=== PATIENT | female | born 1995 | race Caucasian/White ===

== ENCOUNTER 2019-07-28 10:25 | Emergency (ER) | payer OTHER ==
[2019-07-28 10:31] VITALS: BP 120/66; PULSE 79; TEMP 97.6; BMI 37.5
--- NOTE | 2019-07-28 10:47 | PDOC ---
History of Present Illness - General Chief Complaint: ,Possible Stated Complaint: TEST Time Seen by Provider: 07/28/19 10:35 - History of Present Illness Initial Comments: 07/28/19 11:04 CHIEF COMPLAINT: HISTORY OF PRESENT ILLNESS: 23 yo F with no PMH presents to [facility] test. LMP 05/29/19. Patient states she took two tests at home which were both positive and "wanted to make sure." She denies any vaginal discharge, bleeding, abdominal or pelvic pain, urinary symptoms, nausea , or vomiting. Patient does reports "some heartburn since yesterday, which I' ve never had before." No recent travel or sick contacts. PAST MEDICAL HISTORY: Denies past medical history FAMILY HISTORY: Denies SOCIAL HISTORY: Denies tobacco, alcohol, illicit drug use. SURGICAL HISTORY: Denies ALLERGIES: No known drug allergies REVIEW OF SYSTEMS General/Constitutional: Denies fever or chills. Denies weakness, weight change. HEENT: Denies change in vision. Denies ear pain or discharge. Denies sore throat. Cardiovascular: Denies chest pain or shortness of breath. Respiratory: Denies cough, wheezing, or hemoptysis. Gastrointestinal: "I feel a little heartburn." Denies nausea, vomiting, diarrhea or constipation. Denies rectal bleeding. Genitourinary: Denies dysuria, frequency, or change in urination. Musculoskeletal: Denies joint or muscle swelling or pain. Denies neck or back pain. Skin and breasts: Denies rash or easy bruising. Neurologic: Denies headache, vertigo, loss of consciousness, or loss of sensation. PHYSICAL EXAM General Appearance: Well-appearing, appropriately dressed. No apparent distress , no intoxication. HEENT: EOMI, PERRLA, normal ENT inspection, normal voice, TMs normal, pharynx normal. No conjunctival pallor. No photophobia, scleral icterus. Neck: Supple. Trachea midline. No tenderness, rigidity, carotid bruit, stridor , lymphadenopathy, or thyromegaly. Respiratory/Chest: Lungs CTAB. No shortness of breath, chest tenderness, respiratory distress, accessory muscle use. No crackles, rales, rhonchi, stridor , wheezing, dullness Cardiovascular: RRR. S1, S2. No JVD, murmur, bradycardia, tachycardia. Vascular Pulses: Dorsalis-Pedis (R): 2+, Dorsalis-Pedis (L): 2+ Gastrointestinal/Abdominal: Normal bowel sounds. Abdomen soft, non-distended. No tenderness or rebound tenderness. No organomegaly, pulsatile mass, guarding , hernia, hepatomegaly, splenomegaly. Lymphatic: No adenopathy, tenderness. Musculoskeletal/Extremities: Normal inspection. FROM of all extremities, normal capillary refill. Pelvis Stable. No CVA tenderness. No tenderness to extremities, pedal edema, swelling, erythema or deformity. Integumentary: Appropriate color, dry, warm. 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 Fully oriented, alert. Appropriate mood/affect. Motor strength 5/5. No appreciable EOM palsy, facial droop or sensory deficit. 07/28/19 11:13 07/28/19 11:21 Past History - Past Medical History Allergies/Adverse Reactions: Allergies Allergy/AdvReac Type Severity Reaction Status Date / Time No Known Allergies Allergy Verified 07/28/19 10:31 Home Medications: Ambulatory Orders Ranitidine HCl [Zantac] 150 mg PO DAILY PRN #10 tablet 07/28/19 COPD: No - Suicide/Smoking/Psychosocial Hx Smoking History: Never smoked Hx Alcohol Use: No Drug/Substance Use Hx: No *Physical Exam - Vital Signs Last Vital Signs Temp Pulse Resp BP Pulse Ox 97.6 F 79 16 120/66 98 07/28/19 10:29 07/28/19 10:29 07/28/19 10:29 07/28/19 10:29 07/28/19 10:29 Medical Decision Making - Medical Decision Making 07/28/19 11:16 23 yo F with no PMH presents to [facility] for test and concerns for heart burn in . -upreg -zantac Advised patient to take medication as prescribed and follow up with OB within the next week for continuation of care in . Advised patient of signs and symptoms for return to ED. Patient verbalized understanding and agrees to plan. *DC/Admit/Observation/Transfer Diagnosis at time of Disposition: Qualifiers: Weeks of gestation: 10 weeks Qualified Code(s): Z3A.10 - 10 weeks gestation of Heartburn during Qualifiers: Trimester: first trimester Qualified Code(s): O26.891 - Other specified related conditions, first trimester - Discharge Dispostion Disposition: HOME Condition at time of disposition: Stable Decision to Admit order: No - Prescriptions Prescriptions: Ranitidine HCl [Zantac] 150 mg PO DAILY PRN #10 tablet PRN Reason: heartburn - Referrals Referrals: Vivian Murray MD [Staff Physician] - Aysha Skaggs DO [Staff Physician] - - Patient Instructions Printed Discharge Instructions: Managing Symptoms of Additional Instructions: Please take medications as prescribed. As discussed, follow up with OB within the next week for management of your . If you develop an vaginal bleeding, abdominal or pelvic pain, or any new or worsening symptoms, please return to the ER. - Post Discharge Activity
== END 2019-07-28 11:33 | disposition home or self-care (01) ==
LOC: JERFT 10:25
DX: O26.891 Other specified pregnancy related conditions, first trimester (principal); R12 Heartburn; Z3A.10 10 weeks gestation of pregnancy
CPT/HCPCS: 84703; 99281-25

== ENCOUNTER 2019-08-31 23:01 | Emergency (ER) | payer OTHER ==
[2019-08-31 23:43] VITALS: BMI 35.9
[2019-09-01] MEDS ORDERED: diphenhydrAMINE HCL 25 MG CAPSULE (FP) PO ONE ×3 (00:59→01:10)
--- NOTE | 2019-09-01 01:25 | PDOC ---
Documentation entered by Trish Veronica SCRIBE, acting as scribe for Bailee Briones MD. Bailee Briones MD: This documentation has been prepared by the Glenys nath Adrianna, SCRIBE, under my direction and personally reviewed by me in its entirety. I confirm that the documentation accurately reflects all work, treatment, procedures, and medical decision making performed by me. History of Present Illness - General Chief Complaint: Rash Stated Complaint: RASH Time Seen by Provider: 09/01/19 00:43 - History of Present Illness Initial Comments: The patient is a 23 year old female, with a significant PMH of chronic plaque psoriasis, who presents for evaluation of diffuse rash for months. Patient complains of a diffuse rash plaque-like lesions in combination with her chronic psoriasis, most prominent on her extremities and back. She notes it has become increasingly itchy, but denies any discharge or drainage from the sites. Patient has tried Eucerin cream without any relief of symptoms, and has an appointment with the table games supervisor on the . Denies fever, chills, chest pain, SOB, nausea, vomit, abdominal pain, diarrhea, constipation, dysuria, hematuria. Allergies: NKA, NKDA Surgical History: None reported Social History: Denies EtOH, tobacco, or illicit drug use Past History - Past Medical History Allergies/Adverse Reactions: Allergies Allergy/AdvReac Type Severity Reaction Status Date / Time No Known Allergies Allergy Verified 08/31/19 23:43 Home Medications: Ambulatory Orders Ranitidine HCl [Zantac] 150 mg PO DAILY PRN #10 tablet 07/28/19 Colloidal Oatmeal [Aveeno Soothing Bath] 1 each TP DAILY #20 packet MDD 1 packet 09/01/19 Diphenhydramine HCl [Benadryl -] 25 mg PO Q6H PRN #28 capsule MDD 4 tabs Hydrocortisone 1% Ointment [Hytone 1% Ointment -] 1 applic TP DAILY PRN #2 tube 09/01/19 COPD: No - Psycho Social/Smoking Cessation Hx Smoking History: Never smoked Have you smoked in the past 12 months: No Information on smoking cessation initiated: No Hx Alcohol Use: No Drug/Substance Use Hx: No Review of Systems - Review of Systems Comments:: GENERAL/CONSTITUTIONAL: No fever or chills. No weakness. HEAD, EYES, EARS, NOSE AND THROAT: No change in vision. No ear pain or discharge. No sore throat. CARDIOVASCULAR: No chest pain or shortness of breath. RESPIRATORY: No cough, wheezing, or hemoptysis. GASTROINTESTINAL: No nausea, vomiting, diarrhea or constipation. GENITOURINARY: No dysuria, frequency, or change in urination. MUSCULOSKELETAL: No joint or muscle swelling or pain. No neck or back pain. SKIN: +Diffuse rash/plaque-like lesions that are itchy. NEUROLOGIC: No headache, vertigo, loss of consciousness, or change in strength/ sensation. ENDOCRINE: No increased thirst. No abnormal weight change. HEMATOLOGIC/LYMPHATIC: No anemia, easy bleeding, or history of blood clots. ALLERGIC/IMMUNOLOGIC: No hives or skin allergy. *Physical Exam - Vital Signs Last Vital Signs Temp Pulse Resp BP Pulse Ox 98.4 F 89 17 116/59 L 98 08/31/19 23:10 08/31/19 23:10 08/31/19 23:10 08/31/19 23:10 08/31/19 23:10 - Physical Exam Comments: GENERAL: Awake, alert, and fully oriented, in no acute distress HEAD: No signs of trauma EYES: PERRLA, EOMI, sclera anicteric, conjunctiva clear ENT: Auricles normal inspection, hearing grossly normal, nares patent, oropharynx clear without exudates. Moist mucosa NECK: Normal ROM, supple, no lymphadenopathy, JVD, or masses LUNGS: Breath sounds equal, clear to auscultation bilaterally. No wheezes, and no crackles HEART: Regular rate and rhythm, normal S1 and S2, no murmurs, rubs or gallops ABDOMEN: Soft, nontender, normoactive bowel sounds. No guarding, no rebound. No masses EXTREMITIES: Normal range of motion, no edema. No clubbing or cyanosis. No cords, erythema, or tenderness NEUROLOGICAL: Cranial nerves II through XII grossly intact. Normal speech, normal gait SKIN: +Diffuse plaque psoriasis lesions, over extremities, back, and extensor surfaces. +Excoriated lesions on the back from scratching. Warm, Dry, normal turgor, no rashes or lesions noted. Discharge - Discharge Information Problems reviewed: Yes Clinical Impression/Diagnosis: Rash and nonspecific skin eruption Condition: Stable Disposition: HOME - Admission No - Additional Discharge Information Prescriptions: Colloidal Oatmeal [Aveeno Soothing Bath] 1 each TP DAILY #20 packet MDD 1 packet Diphenhydramine HCl [Benadryl -] 25 mg PO Q6H PRN #28 capsule MDD 4 tabs PRN Reason: Allergies Hydrocortisone 1% Ointment [Hytone 1% Ointment -] 1 applic TP DAILY PRN #2 tube PRN Reason: RASH - Follow up/Referral Referrals: Heidi Keys MD [Staff Physician] - - Patient Discharge Instructions Patient Printed Discharge Instructions: DI for Rash Additional Instructions: PLEASE FOLLOW UP WITH THE ASSISTANT SHIFT SUPERVISOR PLEASE STONE CUTTER YOUR MEDICATIONS AT [facility] - Post Discharge Activity
[2019-09-01 01:31] VITALS: BP 111/65; PULSE 78; TEMP 98.2
== END 2019-09-01 01:20 | disposition home or self-care (01) ==
LOC: JER 23:01
DX: R21 Rash and other nonspecific skin eruption (principal); L40.0 Psoriasis vulgaris
CPT/HCPCS: 99282-25

== ENCOUNTER 2020-08-15 13:15 | Emergency (ER) | payer OTHER ==
[2020-08-15 13:48] VITALS: BP 123/79; PULSE 88; TEMP 98.6; BMI 31.2
[2020-08-15] MEDS ORDERED: AZITHROMYCIN 500 MG TABLET PO ONE (15:02)
[2020-08-15] MEDS ORDERED: AZITHROMYCIN 250 MG TABLET ONE (15:04)
--- NOTE | 2020-08-15 15:18 | PDOC ---
History of Present Illness - General Chief Complaint: Vaginal Sxs Stated Complaint: STD TESTING Time Seen by Provider: 08/15/20 13:56 History Source: Patient Exam Limitations: No Limitations - History of Present Illness Initial Comments: 08/15/20 15:13 Patient is a 24-year-old female who presents to the ED with complaint vaginal discharge, vaginal irritation and concern for an STD. The patient states she saw her SUPERVISOR MECHANIC BOILERMAKING 1 week ago and was put on fluconazole p.o. She states she was then given ointment for her vagina but still complains of the irritation. The patient states that her was called today and told that he has chlamydia. He was treated in the emergency department when he was seen several days ago. The patient states that she has not had any other sexual partners except for her . She does admit to noticing some blood when she wipes and believes she might be getting her menses. The patient is multiparous. She denies any past medical history or allergies to medications. Past History - Medical History Allergies/Adverse Reactions: Allergies Allergy/AdvReac Type Severity Reaction Status Date / Time No Known Allergies Allergy Verified 08/15/20 13:41 Home Medications: Ambulatory Orders Colloidal Oatmeal [Aveeno Soothing Bath] 1 each TP DAILY #20 packet MDD 1 packet 09/01/19 Diphenhydramine HCl [Benadryl -] 25 mg PO Q6H PRN #28 capsule MDD 4 tabs 09/01/19 Hydrocortisone 1% Ointment [Hytone 1% Ointment -] 1 applic TP DAILY PRN #2 tube 09/01/19 COPD: No - Reproductive History Is Patient Now?: No - Psycho-Social/Smoking History Smoking History: Never smoked Have you smoked in the past 12 months: No Review of Systems - Review of Systems Comments:: 08/15/20 15:16 - Review of Systems Able to Perform ROS?: Yes Constitutional: No: Fever, Chills, Loss of Appetite, Night Sweats, Weakness HEENTM: No: Eye Pain, Vision changes, Ear Pain, Throat Pain, Throat Swelling, Mouth Pain, Difficulty Swallowing Respiratory: No: Cough, Shortness of Breath, Wheezing, Sputum Production Cardiac (ROS): No: Chest Pain, Chest Tightness, Palpitations, Irregular Heart Beat, Edema ABD/GI: No: Nausea, Vomiting, Abdominal Pain, Diarrhea : No Dysuria, No Hematuria, No Frequency, No Urgency, positive: Vaginal discharge, vaginal irritation and vaginal spotting Musculoskeletal: No: Muscle Pain, Back Pain, Joint Pain, Muscle Weakness, Neck Pain Integumentary: No: Lesions, Rash Neurological: No: Headache, Numbness, Tingling, Weakness, Speech Difficulties *Physical Exam - Vital Signs Last Vital Signs Temp Pulse Resp BP Pulse Ox 98.6 F 88 18 123/79 98 08/15/20 13:43 08/15/20 13:43 08/15/20 13:43 08/15/20 13:43 08/15/20 13:43 - Physical Exam 08/15/20 15:17 - Physical Exam General Appearance: Nourished, Appropriately Dressed, No Distress HEENT: EOMI, Normal Voice, Hearing Grossly Normal Neck: Supple, No Lymphadenopathy (R), No Lymphadenopathy (L), No Rigidity, No Decreased range of motion Respiratory/Chest: Lungs Clear, Normal Breath Sounds. No Respiratory Distress, No Accessory Muscle Use Cardiovascular: Regular Rhythm, Regular Rate, S1, S2 Gastrointestinal/Abdominal: Normal Bowel Sounds, Soft. Non-tender, No Guarding, No Rebound, No Rigidity TELEPHONE INSTALLER: Purulent appearing green discharge in the vaginal vault and at the cervical office. No foul odor appreciated. There is also some thick white discharge in the vault consistent with yeast. Friable cervix appreciated with mild CMT. Upon swabbing the cervical office, there was red blood appreciated. Mild suprapubic tenderness to palpation. Adnexa nontender nonpalpable. No masses palpated. Musculoskeletal: Normal Inspection. No Decreased Range of Motion Extremity: Normal Capillary Refill, Normal Inspection Integumentary: Normal Color, Dry. No Rash Neurologic: warp trucker II-XII NML intact, Fully Oriented, Alert, Normal Mood/Affect, Normal Response ED Treatment Course - ADDITIONAL ORDERS Additional order review: 08/15/20 16:04 Laboratory Tests 08/15/20 08/15/20 14:50 14:50 Urine Color Yellow Urine Appearance Clear Urine pH 7.5 Ur Specific [place] 1.006 L Urine Protein Negative Urine Glucose (UA) Negative Urine Ketones Negative Urine Blood 2+ H Urine Nitrite Negative Urine Bilirubin Negative Urine Urobilinogen 0.2 Ur Leukocyte Esterase 3+ H Urine WBC (Auto) 79 Urine RBC (Auto) 6 Urine Casts (Auto) 1 U Epithel Cells (Auto) >36 Urine Bacteria (Auto) 84 C. trachomatis (MARIO) Pending N. gonorrhoeae (MARIO) Pending - Medications Given in the ED: ED Medications Discontinued Medications Generic Name Dose Route Start Last Admin Trade Name Sandy PRN Reason Stop Dose Admin Azithromycin 1,000 mg 08/15/20 15:02 08/15/20 15:08 Zithromax PO 08/15/20 15:03 1,000 mg ONCE ONE Administration Ceftriaxone Sodium 250 mg 08/15/20 15:02 08/15/20 15:08 Rocephin - IM 08/15/20 15:03 250 mg ONCE ONE Administration Medical Decision Making - Medical Decision Making 08/15/20 15:18 Assessment: Patient is a 24-year-old female with a sexual partner diagnosed with chlamydia. The patient is also having vaginal discharge and vaginal irritation. Plan: -GC and Chlamydia swab sent to the lab -Vaginal culture swab sent to lab -Azithromycin 1 g p.o. and ceftriaxone 250 mg IM given in the ED -UA and urine culture sent to the lab -Will reassess 08/15/20 16:04 The patient's urine does not show evidence of acute infection but there are bacteria in the urine. Will wait for the urine culture to result before giving antibiotics. The patient has been made aware that we will call her with the GC/chlamydia results if positive. She understands and agrees with this treatment plan and she is stable for discharge Discharge - Discharge Information Problems reviewed: Yes Clinical Impression/Diagnosis: STD exposure Condition: Stable Disposition: HOME - Follow up/Referral - Patient Discharge Instructions Patient Printed Discharge Instructions: DI for Pelvic Inflammatory Disease (PID) Additional Instructions: Avoid any sexual intercourse for at least 2 weeks. Get plenty of rest and drink plenty of fluids. Be sure to follow-up with your SUPERVISOR MECHANIC BOILERMAKING within 1 to 2 days for repeat evaluation. We will call you with the gonorrhea/chlamydia results once they become available but only if positive. - Post Discharge Activity Work/Back to School Note: Back to Work
[2020-08-15 15:48] LABS: EPI CELLS >36 /uL (0-25.1); HYALINE CASTS 1 /uL (0-3.1); PH,URINE 7.5 (5.0-8.0); URINE APPEARANCE CLEAR; URINE BACTERIA 84 /uL (0-1359); URINE BILIRUBIN NEGATIVE (NEGATIVE); URINE COLOR YELLOW; URINE GLUCOSE (UA) NEGATIVE (NEGATIVE); URINE KETONE NEGATIVE (NEGATIVE); URINE LEUK ESTERASE 3+ (NEGATIVE); URINE NITRITE NEGATIVE (NEGATIVE); URINE PROTEIN NEGATIVE (NEGATIVE); URINE RBC 6 /uL (0-23.9); URINE UROBILINOGEN 0.2 mg/dL (0.2-1.0); URINE WBC 79 /uL (0-25.8)
--- OUTSIDE RECORDS SUMMARY | 2020-08-15 16:18 | XMS ---
:1995 Author Organization [facility] Support Name Relationship Address Phone SE, SELF-EMPLOYED Unavailable Unavailable Unavailable SE Unavailable Unavailable Unavailable [employer] Unavailable [address] [address] GUILLERMO LASSITER [address] [facility] [place] [address] Re-disclosure Warning The records that you are about to access may contain information from federally- assisted alcohol or drug abuse programs. If such information is present, then the following federally mandated warning applies: This information has been disclosed to you from records protected by federal confidentiality rules (42 CFR part 2). The federal rules prohibit you from making any further disclosure of this information unless further disclosure is expressly permitted by the written consent of the person to whom it pertains or as otherwise permitted by 42 CFR part 2. A general authorization for the release of medical or other information is NOT sufficient for this purpose. The Federal rules restrict any use of the information to criminally investigate or prosecute any alcohol or drug abuse patient.The records that you are about to access may contain highly sensitive health information, the redisclosure of which is protected by Article 27-F of the [facility] Public Health law. If you continue you may haveaccess to information: Regarding HIV / AIDS; Provided by facilities licensed or operated by the [facility] Office of Mental Health; or Provided by the [facility] Office for People With Developmental Disabilities. If such information is present, then the following [facility] mandated warning applies: This information has been disclosed to you from confidential records which are protected by state law. State law prohibits you from making any further disclosure of this information without the specific written consent of the person to whom it pertains, or as otherwise permitted by law. Any unauthorized further disclosure in violation of state law may result in a fine or prison sentence or both. A general authorization for the release of medical or other information is NOT sufficient authorization for further disclosure. Insurance Providers Payer name Policy type Policy ID Covered Covered alliance party's Policy P marshall / Coverage alliance party ID relationship to [place] [employer] type [place] [id number] SP [id number] HEALTH CARE HMO/POS/[facility] [id number] SP [id number] FIRST
== END 2020-08-15 16:10 | disposition home or self-care (01) ==
LOC: JERFT 13:15
DX: Z20.2 Contact with and (suspected) exposure to infections with a predominantly sexual mode of transmission (principal)
CPT/HCPCS: 36415; 81003; 87070; 87077; 87086; 87205; 87491; 87591; 99284-25